=== PATIENT | female | born 1995 | race Caucasian/White ===

== ENCOUNTER → 2018-12-30 | Outpatient (CLI) | payer BC ==
--- NOTE | 2018-12-30 09:06 | US ---
EXAMINATION TYPE: US abdomen complete DATE OF EXAM: 12/30/2018 COMPARISON: NONE CLINICAL HISTORY: 23-year-old female R10.2 Pelvic and abd pain. RLQ pain, NPO, no surgeries TECHNIQUE: Multiple sonographic images of the abdomen are obtained. FINDINGS: EXAM MEASUREMENTS: Liver Length: 17.0 cm Gallbladder Wall: 0.2 cm CHD: 0.4 cm Spleen: 9.5 cm Right Kidney: 11.3 x 5.0 x 4.2 cm Left Kidney: 10.6 x 4.6 x 5.4 cm Pancreas: Tail obscured by overlying bowel gas. Visualized portions show no gross abnormality. Liver: Upper limits of normal in size at 17.0 cm. There is otherwise homogeneous appearance without focal lesion. Gallbladder: wnl Evidence for sonographic Melendez's sign: neg CBD: Obscured by overlying bowel gas CHD: wnl Spleen: wnl Right Kidney: wnl Left Kidney: wnl Upper IVC: wnl Abd Aorta: wnl IMPRESSION: Borderline sized liver (17.0 cm). The pancreatic tail is obscured by bowel gas shadowing. Otherwise, unremarkable sonographic examination of the abdomen.
--- NOTE | 2018-12-30 09:08 | US ---
EXAMINATION TYPE: US pelvic complete DATE OF EXAM: 12/30/2018 COMPARISON: NONE CLINICAL HISTORY: 23-year-old female R10.2 Pelvic and abd pain. RLQ pain TECHNIQUE: Transabdominal (TA). Date of LMP: 12/07/2018, G0 FINDINGS: EXAM MEASUREMENTS: Uterus: 6.9 x 4.4 x 3.2 cm Endometrial Stripe: 0.6 cm Right Ovary: 2.5 x 1.2 x 1.5 cm Left Ovary: 3.0 x 1.6 x 1.4 cm 1. Uterus: Anteverted wnl 2. Endometrium: wnl 3. Right Ovary: wnl 4. Left Ovary: wnl 5. Bilateral Adnexa: wnl 6. Posterior cul-de-sac: no free fluid IMPRESSION: Unremarkable transabdominal sonographic examination of the pelvis.
== END | disposition home or self-care (01) ==
LOC: RADUSWWP 07:19
PROVIDERS: ATTEND Internal Medicine
DX: R10.2 Pelvic and perineal pain (principal)
CPT/HCPCS: 76700; 76856

== ENCOUNTER 2024-03-14 15:14 | Emergency (ER) | payer BC ==
--- NOTE | 2024-03-14 15:32 | ED ---
Female Urogenital HPI - General Source: patient, RN notes reviewed Mode of arrival: ambulatory Limitations: no limitations <Lashanda Parra - Last Filed: 03/14/24 15:31> <Khang Good - Last Filed: 03/14/24 18:05> - General Stated complaint: 17wks preg, vag bleeding Time Seen by Provider: 03/14/24 15:31 - History of Present Illness Initial comments: Quick note: 29-year-old female presenting to the ER with chief complaint of vaginal bleeding. Patient is G1, P0 approximately 17 weeks gestation. She reports she went to the bathroom and had bright red blood when she wiped. This started about 30 minutes prior to arrival. She denies any abdominal cramping, fevers, urinary complaints. (Lashanda Parra) A0 29-year-old female who is approximately 17 weeks presenting to the ED with a chief complaint of vaginal bleeding. Patient reports earlier today had an episode of spotting which is now resolved. There is no associated abdominal pain. No other associated symptoms with this. Denies urinary symptoms. No fever or chills. Follows with an OB at [facility]. No other complaints at this time. (Khang Good) - Related Data Allergies Allergy/AdvReac Type Severity Reaction Status Date / Time No Known Allergies Allergy Verified 03/14/24 15:49 Review of Systems ROS Other: All systems not noted in ROS Statement are negative. <Lashanda Parra - Last Filed: 03/14/24 15:31> ROS Other: All systems not noted in ROS Statement are negative. <Khang Good - Last Filed: 03/14/24 18:05> ROS Statement: Those systems with pertinent positive or pertinent negative responses have been documented in the HPI. General Exam <Lashanda Parra - Last Filed: 03/14/24 15:31> General appearance: alert, in no apparent distress Eye exam: Present: normal appearance Neck exam: Present: normal inspection Respiratory exam: Present: normal lung sounds bilaterally Cardiovascular Exam: Present: regular rate GI/Abdominal exam: Present: soft (Gravid), normal bowel sounds. Absent: distended, tenderness, guarding, rebound, rigid Extremities exam: Present: other (Chaperoned by [place] GONZALEZ. Cervical os closed. No active vaginal bleeding. No discharge.) Neurological exam: Present: alert, oriented X3 Skin exam: Present: warm, dry <Khang Good - Last Filed: 03/14/24 18:05> - General Exam Comments Initial Comments: Visual Physical Exam Vital signs reviewed General: Well-appearing, nontoxic, no acute distress. Head: Normocephalic, atraumatic Eyes: PERRLA, EOMI ENT: Airway patent Chest: Nonlabored breathing Skin: No visual rash, normal skin tone Neuro: Alert and oriented 3 Musculoskeletal: No gross abnormalities (Lashanda Parra) Course Vital Signs 03/14/24 03/14/24 15:46 17:18 Temperature 98.2 F 98.1 F Pulse Rate 85 70 Respiratory 16 Rate Blood Pressure 130/80 O2 Sat by Pulse 98 99 Oximetry Medical Decision Making <Lashanda Parra - Last Filed: 03/14/24 15:31> - Lab Data Result diagrams: 03/14/24 15:30 03/14/24 15:30 <Khang Good - Last Filed: 03/14/24 18:05> - Medical Decision Making I performed the quick note portion of this chart. Electronically signed by Lashanda Parra PA-C (Lashanda Parra) Was pt. sent in by a medical professional or institution ([facility], ROD [employer]ISHER, urgent care, hospital, or detention...) When possible be specific @ -No Did you speak to anyone other than the patient for history (EMS, parent, family, police, friend...)? What history was obtained from this source @ -No Did you review nursing and triage notes (agree or disagree)? Why? @ -I reviewed and agree with nursing and triage notes Were old charts reviewed (outside hosp., previous admission, EMS record, old EKG, old radiological studies, urgent care reports/EKG's, detention records)? Report findings @ -No old charts were reviewed Differential Diagnosis (chest pain, altered mental status, abdominal pain women, abdominal pain men, vaginal bleeding, weakness, fever, dyspnea, syncope, headache, dizziness, GI bleed, back pain, seizure, CVA, palpatations, mental health, musculoskeletal)? @ -Differential Vaginal Bleeding: Spontaneous , threatened , molar , ectopic , bloody show, incompetent cervix, abruptioplacenta, placenta previa, uterine rupture, dysfunctional uterine bleeding, hemorrhage, uterine fibroids, this is not meant to be an all-inclusive list. EKG interpreted by me (3pts min.). @ -None X-rays interpreted by me (1pt min.). @ -None done CT interpreted by me (1pt min.). @ -None done U/S interpreted by me (1pt. min.). @ -Ultrasound to primary which shows single live IUP measuring at 18 weeks and 6 days with a heart rate of 146 bpm. What testing was considered but not performed or refused? (CT, X-rays, U/S, lab s)? Why? @ -None What meds were considered but not given or refused? Why? @ -None Did you discuss the management of the patient with other professionals (professionals i.e. , PA, ROD FINISHER, lab, RT, psych nurse, social welfare administrator, supervisory investigative specialist, teacher, airfield engineer officer, family service caseworker)? Give summary @ -No Was smoking cessation discussed for >3mins.? @ -No Was critical care preformed (if so, how long)? @ -No Were there social determinants of health that impacted care today? How? (Homelessness, low income, unemployed, alcoholism, drug addiction, transportation, low edu. Level, literacy, decrease access to med. care, correction, rehab)? @ -No Was there de-escalation of care discussed even if they declined (Discuss DNR or withdrawal of care, Hospice)? DNR status @ -No What co-morbidities impacted this encounter? (DM, HTN, Smoking, COPD, CAD, Cancer, CVA, ARF, Chemo, Hep., AIDS, mental health diagnosis, sleep apnea, morbid obesity)? @ -None Was patient admitted / discharged? Hospital course, mention meds given and route, prescriptions, significant lab abnormalities, going to OR and other pertinent info. @ -Discharge 29-year-old female who is approximately 17 weeks presenting to the ED with complaint of vaginal spotting which at this time is now resolved. Laboratory studies reviewed. Labs including CBC, CMP, UA unremarkable. hCG quant 43,478.5. Blood type O+. ultrasound revealed single live IUP measuring at 18 weeks and 6 days with a heart rate of 146 bpm. On pelvic examination, os was closed with no active vaginal bleeding. No discharge. Patient and family reassured. Discharged home in stable condition and advised close follow-up with her OB. Discussed return precautions with patient and family who verbalized agreement. Undiagnosed new problem with uncertain prognosis? @ -No Drug Therapy requiring intensive monitoring for toxicity (Heparin, Nitro, Insulin, Cardizem)? @ -No Were any procedures done? @ -No Diagnosis/symptom? @ -Episode of vaginal bleeding in , now resolved Acute, or Chronic, or Acute on Chronic? @ -Acute Uncomplicated (without systemic symptoms) or Complicated (systemic symptoms)? @ -Uncomplicated Side effects of treatment? @ -No Exacerbation, Progression, or Severe Exacerbation? @ -No Poses a threat to life or bodily function? How? (Chest pain, [place], [place], pneumonia, PE, COPD, DKA, ARF, appy, cholecystitis, CVA, Diverticulitis, Homicidal, Suicidal, threat to staff... and all critical care pts) @ -No (Khang Good) - Lab Data Lab Results 03/14/24 03/14/24 03/14/24 Range/Units 15:30 15:30 15:30 WBC 10.5 (3.8-10.6) k/uL RBC 3.72 L (3.80-5.40) m/uL Hgb 12.3 (11.4-16.0) gm/dL Hct 35.8 (34.0-46.0) % MCV 96.3 (80.0-100.0) fL MCH 32.9 (25.0-35.0) pg MCHC 34.2 (31.0-37.0) g/dL RDW 12.7 (11.5-15.5) % Plt Count 285 (150-450) k/uL MPV 6.8 Sodium 137 (137-145) mmol/L Potassium 4.1 (3.5-5.1) mmol/L Chloride 108 H (98-107) mmol/L Carbon Dioxide 21 L (22-30) mmol/L Anion Gap 8 mmol/L BUN 7 (7-17) mg/dL Creatinine 0.63 (0.52-1.04) mg/dL Est GFR (CKD-EPI)AfAm >90 (>60 ml/min/1.73 sqM) Est GFR (CKD-EPI)NonAf >90 (>60 ml/min/1.73 sqM) Glucose 97 (74-99) mg/dL Calcium 9.6 (8.4-10.2) mg/dL Total Bilirubin 0.2 (0.2-1.3) mg/dL AST 37 H (14-36) U/L ALT 37 H (4-34) U/L Alkaline Phosphatase 70 (38-126) U/L Total Protein 6.3 (6.3-8.2) g/dL Albumin 3.6 (3.5-5.0) g/dL HCG, Quant 54173.5 mIU/mL Urine Color Colorless Urine Appearance Clear (Clear) Urine pH 6.0 (5.0-8.0) Ur Specific [place] 1.001 (1.001-1.035) Urine Protein Negative (Negative) Urine Glucose (UA) Negative (Negative) Urine Ketones Negative (Negative) Urine Blood Negative (Negative) Urine Nitrite Negative (Negative) Urine Bilirubin Negative (Negative) Urine Urobilinogen <2.0 (<2.0) mg/dL Ur Leukocyte Esterase Negative (Negative) Blood Type Blood Type Recheck Bld Type Recheck Status 03/14/24 Range/Units 15:58 WBC (3.8-10.6) k/uL RBC (3.80-5.40) m/uL Hgb (11.4-16.0) gm/dL Hct (34.0-46.0) % MCV (80.0-100.0) fL MCH (25.0-35.0) pg MCHC (31.0-37.0) g/dL RDW (11.5-15.5) % Plt Count (150-450) k/uL MPV Sodium (137-145) mmol/L Potassium (3.5-5.1) mmol/L Chloride (98-107) mmol/L Carbon Dioxide (22-30) mmol/L Anion Gap mmol/L BUN (7-17) mg/dL Creatinine (0.52-1.04) mg/dL Est GFR (CKD-EPI)AfAm (>60 ml/min/1.73 sqM) Est GFR (CKD-EPI)NonAf (>60 ml/min/1.73 sqM) Glucose (74-99) mg/dL Calcium (8.4-10.2) mg/dL Total Bilirubin (0.2-1.3) mg/dL AST (14-36) U/L ALT (4-34) U/L Alkaline Phosphatase (38-126) U/L Total Protein (6.3-8.2) g/dL Albumin (3.5-5.0) g/dL HCG, Quant mIU/mL Urine Color Urine Appearance (Clear) Urine pH (5.0-8.0) Ur Specific [place] (1.001-1.035) Urine Protein (Negative) Urine Glucose (UA) (Negative) Urine Ketones (Negative) Urine Blood (Negative) Urine Nitrite (Negative) Urine Bilirubin (Negative) Urine Urobilinogen (<2.0) mg/dL Ur Leukocyte Esterase (Negative) Blood Type O Positive Blood Type Recheck No Previous Record Bld Type Recheck Status [facility] ONLY Disposition <Lashanda Parra - Last Filed: 03/14/24 15:31> Is patient prescribed a controlled substance at d/c from ED?: No Time of Disposition: 18:05 <Khang Good - Last Filed: 03/14/24 18:05> Clinical Impression: Vaginal bleeding Disposition: HOME SELF-CARE Condition: Good Additional Instructions: Please return to the Emergency Department if symptoms worsen or any other concerns. Please follow-up with your [facility] Referrals: Sofy Khanna MD [Primary Care Provider] - 1-2 days
[2024-03-14 16:07] LABS: Appearance,Urine Clear (Clear); Bilirubin,Urine Negative (Negative); Blood,Urine Negative (Negative); Color,Urine Colorless; Glucose,Urine (UA) Negative (Negative); Ketones,Urine Negative (Negative); Leukocyte Esterase,Urine Negative (Negative); Nitrite,Urine Negative (Negative); Protein,Urine Negative (Negative); Specific Gravity,Urine 1.001 (1.001-1.035); Urobilinogen,Urine <2.0 mg/dL (<2.0)
[2024-03-14 16:08] LABS: HCT 35.8 % (34.0-46.0); HGB 12.3 gm/dL (11.4-16.0); MCH 32.9 pg (25.0-35.0); MCHC 34.2 g/dL (31.0-37.0); MCV 96.3 fL (80.0-100.0); Mean Platelet Volume 6.8; Platelet Count 285 k/uL (150-450); RBC 3.72 m/uL (3.80-5.40); RDW 12.7 % (11.5-15.5); WBC 10.5 k/uL (3.8-10.6)
[2024-03-14 16:26] LABS: ALT 37 U/L (4-34); AST 37 U/L (14-36); African American GFR (CKD) >90 (>60 ml/min/1.73 sqM); Albumin 3.6 g/dL (3.5-5.0); Alkaline Phosphatase 70 U/L (38-126); Anion Gap 8 mmol/L; Blood Urea Nitrogen 7 mg/dL (7-17); Calcium 9.6 mg/dL (8.4-10.2); Carbon Dioxide 21 mmol/L (22-30); Chloride 108 mmol/L (98-107); Glucose 97 mg/dL (74-99); Non-African American GFR(CKD) >90 (>60 ml/min/1.73 sqM); Potassium 4.1 mmol/L (3.5-5.1); Sodium 137 mmol/L (137-145); Total Bilirubin 0.2 mg/dL (0.2-1.3); Total Protein 6.3 g/dL (6.3-8.2)
[2024-03-14 17:04] LABS: HCG,Quantitative Serum 43478.5 mIU/mL
--- NOTE | 2024-03-14 17:31 | US ---
EXAMINATION TYPE: US OB >= 14 wk fetus DATE OF EXAM: 03/14/2024 COMPARISON: None CLINICAL INDICATION: Female, 29 years old with history of vag bleeding; spotting x 1 time today TECHNIQUE: Transabdominal (TA) GESTATIONAL AGE / DATING Physician Established: (17 weeks/1 days) EDC: 08/21/2024 Dates by LMP: (17 weeks/1 days) EDC: 08/21/2024 Dates by First Scan: No previous this is first scan Dates by Current Scan: (18 weeks/2 days) EDC: 08/13/2024 Beta HCG (if available): Not available at this time SURVEY IUP: Single PLACENTA: Anterior PREVIA: No Previa NELL: 13.2 cm Normal CERVICAL LENGTH (transabdominal: norm > 3.0cm): 3.4 cm BIOMETRY PRESENTATION: Breech LIE: Longitudinal BPD: 3.98 cm 18 weeks / 1 days HC: 14.29 cm 17 weeks / 4 days AC: 12.37 cm 18 weeks / 0 days FL: 3.10 cm 19 weeks / 4 days ESTIMATED WEIGHT IN GRAMS: grams ESTIMATED WEIGHT IN LBS/OZ: lbs. 9 oz. WEIGHT PERCENTAGE BASED ON ESTABLISHED DATES: 97% HC/AC: 1.16cm Normal FL/AC: 25.07 cm HEART RATE: 146 bpm RHYTHM: Normal IMPRESSION: Single live intrauterine gestation as described.
[2024-03-14 18:01] VITALS: TEMP 98.1
[2024-03-14 19:17] VITALS: BP 126/76; PULSE 76; RESP 18
== END 2024-03-14 18:57 | disposition home or self-care (01) ==
LOC: EC 15:14
DX: O46.92 Antepartum hemorrhage, unspecified, second trimester (principal); Z3A.17 17 weeks gestation of pregnancy
CPT/HCPCS: 36415; 76805; 80053; 81003; 84702; 85027; 86900; 86901; 99284